=== PATIENT | male | born 1955 | race Caucasian/White ===

== ENCOUNTER 2016-05-03 13:21 | Outpatient (CLI) | payer OTHER | END 2016-05-03 13:22 | disposition home or self-care (01) | DX: M50.321 Other cervical disc degeneration at C4-C5 level (principal); M47.812 Spondylosis without myelopathy or radiculopathy, cervical region; R20.0 Anesthesia of skin ==

== ENCOUNTER 2016-05-21 08:45 | Outpatient (CLI) | payer OTHER | END 2016-05-21 08:46 | disposition short-term general hospital (02) | DX: M53.3 Sacrococcygeal disorders, not elsewhere classified (principal); W01.0XXA Fall on same level from slipping, tripping and stumbling without subsequent striking against object, initial encounter; Y92.008 Other place in unspecified non-institutional (private) residence as the place of occurrence of the external cause | CPT/HCPCS: A0425; A0427 ==